=== PATIENT | male | born 1945 | race Hispanic/Latino ===

== ENCOUNTER → 2018-07-26 | Outpatient (CLI) | payer OTHER | END | disposition home or self-care (01) | LOC: RAH 08:43 | PROVIDERS: ATTEND Internal Medicine | DX: M47.26 Other spondylosis with radiculopathy, lumbar region (principal); M48.061 Spinal stenosis, lumbar region without neurogenic claudication; M48.07 Spinal stenosis, lumbosacral region | CPT/HCPCS: 72148 ==

== ENCOUNTER → 2024-09-08 | Outpatient (CLI) | payer MEDICARE ==
[~2024-09-08] MED LIST: AMLO-258 PO; CYAN-37 PO; FOLI0.8T22 PO; GLIM1TAB56 PO; LEVO25CA5 PO; ROSU5TAB51 PO; SODI650T PO
--- NOTE | 2024-09-09 05:46 | HMCIMG ---
EXAM: CT Pelvis without IV contrast. CLINICAL HISTORY: Elevated prostate-specific antigen. TECHNIQUE: Thin collimated axial CT images of the abdomen and pelvis were obtained with sagittal and coronal reformatted images also submitted. CT scan done according to ALARA (As Low As Reasonably Achievable). CONTRAST: None. COMPARISON: CT abdomen and pelvis without contrast dated 05/11/22. FINDINGS: Diffuse uncomplicated colonic diverticulosis. There is no abnormality within the urinary bladder. Mild prostatomegaly measuring 4.3 x 3.3 x 4.4 cm (CC x AP x TR). Bilateral seminal vesicles are unremarkable. Mild calcific atheromatous plaques in the bilateral iliac and common femoral arteries. No significant lymphadenopathy. No free fluid. There is no acute osseous abnormality. Mild degenerative osseous changes. IMPRESSIONS: 1. No acute process in the pelvis. 2. Mild prostatomegaly. Mild interval increase from the prior scan. 3. Diffuse uncomplicated colonic diverticulosis, stable. /Satish
--- NOTE | 2024-09-09 09:19 | HMCIMG ---
EXAMINATION: ULTRASOUND OF THE THYROID. CLINICAL HISTORY: Hypothyroidism. COMPARISON: None. TECHNIQUE: Transverse and longitudinal images were obtained through both lobes and the isthmus of the thyroid. FINDINGS: The thyroid gland is normal in caliber with homogenous tissue echotexture. The right thyroid lobe measures 3.1 x 1.7 x 1.1 cm and the left thyroid lobe measures 2.3 x 0.6 x 0.7 cm in the craniocaudal, AP, and transverse dimensions respectively. The isthmus measures 0.3 cm in AP dimension. Right lobe: There are no focal lesions. Left lobe: There are no focal lesions. No significantly enlarged lymph nodes. IMPRESSION: No significant abnormality. /Satish
== END | disposition home or self-care (01) ==
LOC: RAH 13:55
PROVIDERS: ATTEND Internal Medicine
DX: N40.0 Benign prostatic hyperplasia without lower urinary tract symptoms (principal); K57.30 Diverticulosis of large intestine without perforation or abscess without bleeding; I70.203 Unspecified atherosclerosis of native arteries of extremities, bilateral legs; E03.9 Hypothyroidism, unspecified; R97.20 Elevated prostate specific antigen [PSA]
CPT/HCPCS: 72192; 76536

== ENCOUNTER 2024-10-09 16:32 | Emergency (ER) | payer OTHER, MEDICARE ==
[~2024-10-09] VITALS: Ht 172.7 cm; Wt 83.5 kg
--- NOTE | 2024-10-09 16:53 | ERN ---
General Chief Complaint: Weakness Stated Complaint: WEAKNESS X 2 DAYS Time Seen by MD: 16:34 Source: patient History of Present Illness Initial Comments PATIENT IS A 79-YEAR-OLD MALE COMING IN COMPLAINING OF GENERALIZED BODY WEAKNESS AND BODY ACHES. HE STATES THAT THIS HAS BEEN ONGOING FOR A COUPLE OF DAYS. FAR THE BODY ACHES PATIENT STATES THAT THEY ARE MORE PRESENT IN HIS LOWER EXTREMITIES. Allergies: Coded Allergies: No Known Allergies (Unverified Allergy, Unknown, 05/11/22) Home Meds Reported Medications Folic Acid/Vitamin B Comp W-C (Ngozi-Jeri Tablet) 0.8 Mg Tablet, 0.8 MG PO DAILY, TAB 05/11/22 Sodium Bicarbonate (Sodium Bicarbonate) 650 Mg Tablet, 650 MG PO TID, TAB 05/11/22 Levothyroxine Sodium (Levothyroxine) 25 Mcg Capsule, 25 MCG PO AM, CAP 05/11/22 Amlodipine Besylate (Amlodipine Besylate) 10 Mg Tablet, 10 MG PO DAILY for 30 Days, #30 TAB 0 Refills 05/11/22 Cyanocobalamin (Vitamin B-12) (B-12) 1,000 Mcg Tablet, 1000 MCG PO DAILY, TAB 05/11/22 Glimepiride (Glimepiride) 1 Mg Tablet, 1 MG PO BID, TAB 05/11/22 Rosuvastatin Calcium (Rosuvastatin Calcium) 5 Mg Tablet, 5 MG PO DAILY, TAB 05/11/22 Past Medical History Past Medical History: Diabetes-Type II, High Cholesterol, Hypertension, Renal Failure, Other Medical History Other: VERTIGO Past Surgical History: None ROS Dictation CONSTITUTIONAL: NO CHILLS, NO FEVER, NO WEAKNESS, NO DIAPHORESIS, NO MALAISE. HEAD/FACE: NO SIGNS OF TRAUMA. EENT: NO EYE PAIN, NO BLURRED VISION, NO TEARING, NO DOUBLE VISION, NO EAR PAIN, NO EAR DISCHARGE, NO NOSE PAIN, NO NASAL CONGESTION, NO THROAT PAIN, NO THROAT SWELLING, NO MOUTH PAIN. RESPIRATORY: NO COUGH, NO ORTHOPNEA, NO SOB, NO STRIDOR, NO WHEEZING. CARDIOVASCULAR: NO CHEST PAIN, NO EDEMA, NO PALPITATIONS, NO SYNCOPE. GASTROINTESTINAL/ABDOMINAL: NO ABDOMINAL PAIN, NO CONSTIPATION, NO DIARRHEA, NO NAUSEA, NO VOMITING. GENITOURINARY: NO ABNORMAL DISCHARGE, NO DYSURIA, NO FREQUENT URINATION, NO HEMATURIA. NO COMPLAINTS OF PAIN IN THE GENITALS. MUSCULOSKELETAL: NO BACK PAIN, NO GOUT, NO JOINT PAIN, NO JOINT SWELLING, NO MUSCLE PAIN, NO MUSCLE STIFFNESS, NO NECK PAIN. INTEGUMENTARY: NO CHANGE IN COLOR, NO CHANGE IN HAIR/NAILS, NO DRYNESS, NO LESION, NO LUMPS, NO RASH. NEUROLOGICAL/PSYCH: NO ANXIETY, NOT DEPRESSED, NO EMOTIONAL PROBLEM, NO HEADACHE, NO NUMBNESS, NO PRE-EXISTING DEFICIT, NO HISTORY OF SEIZURES, NO TREMORS, NO WEAKNESS. HEMATOLOGIC/LYMPHATIC: NOT ANEMIC, NO HISTORY OF BLOOD CLOTS, NO APPARENT BLEEDING, NO BRUISING, GLANDS NOT SWOLLEN. ALL SYSTEMS NEGATIVE, EXCEPT NOTED. Physical Exam Physical Exam Dictation VITAL SIGNS: REVIEWED. GENERAL APPEARANCE: ALERT, ORIENTED X3, NO ACUTE DISTRESS, OBESE. HEAD AND FACE: NON-TRAUMATIC. EYES: PERRL, PINK CONJUNCTIVAS, EYELID NO TRAUMA, ANTERIOR CHAMBER CLEAR. EARS: PINNAS INTACT AND NO SIGNS OF TRAUMA OR ERYTHEMA. EAR CANALS CLEAR AND NO DISCHARGE. TMS NO ERYTHEMA. NOSE: NO DISCHARGE, NO BLEEDING. OROPHARYNX: MOUTH NORMAL, TEETH NO CARIES, TONGUE PINK. PHARYNX CLEAR, NO ERYTHEMA. TONSILS NO EXUDATES, NO ABSCESSES NOTED. MUCOUS MEMBRANE MOIST. NECK: SUPPLE, NON-TENDER, NO THYROMEGALY, NO MASSES, NO JVD, NO BRUITS. BREAST: DEFERRED. CHEST: NO TENDERNESS, NO CREPITUS, NO PARADOXICAL MOVEMENT, NO RETRACTIONS. LUNGS: CLEAR, WELL-VENTILATED, SYMMETRIC, NO RALES, NO WHEEZING, NO RHONCHI, NO STRIDOR, GOOD BREATH SOUNDS BILATERALLY. HEART: REGULAR RATE, REGULAR RHYTHM, NO MURMUR, NO GALLOPS. VASCULAR: NO PERIPHERAL EDEMA. ABDOMEN: SOFT, POSITIVE BOWEL SOUNDS, NONDISTENDED, NO GUARDING, NONTENDER, NO REBOUND, NO MASSES NO HEPATOMEGALY, NO SPLENOMEGALY, NO NETTLES'S SIGN, NO HERNIAS. RECTAL: DEFERRED. GENITAL: DEFERRED. NEUROLOGICAL: NORMAL SPEECH, GROSS MOTOR FUNCTION INTACT, GROSS SENSORY FUNCTION INTACT. MUSCULOSKELETAL: NECK NONTENDER, FULL RANGE OF MOTION, BACK NONTENDER, FULL RANGE OF MOTION. EXTREMITIES: NONTENDER, FULL RANGE OF MOTION. SKIN: COLOR PINK, DRY, NO TURGOR, NO RASH, NO LACERATIONS, NO ABRASIONS, NO CONTUSIONS. LYMPHATICS: DEFERRED. Results Laboratory and Microbiology Lab and Micro Result Laboratory Tests Test 10/09/24 16:50 10/09/24 16:52 White Blood Count 9.1 K/uL (4.8-10.8) Red Blood Count 4.18 MIL/uL (4.50-6.20) L Hemoglobin 12.8 g/dL (14.0-18.0) L Hematocrit 38.2 % (42-54) L Mean Corpuscular Volume 91.4 fL (79-99) Mean Corpuscular Hemoglobin 30.6 pg (27.0-33.0) Mean Corpuscular Hemoglobin Concent 33.5 g/dL (32.0-36.0) Red Cell Distribution Width 14.6 % (11.0-15.5) Platelet Count 205 K/uL (130-400) Mean Platelet Volume 10.2 fL (7.5-10.5) Immature Granulocyte % (Auto) 0.6 % (0-1) Neutrophils (%) (Auto) 72.4 % (40.0-77.0) Lymphocytes (%) (Auto) 13.2 % (21.0-51.0) L Monocytes (%) (Auto) 12.5 % (3.0-13.0) Eosinophils (%) (Auto) 0.9 % (0.0-8.0) Basophils (%) (Auto) 0.4 % (0.0-5.0) Neutrophils # (Auto) 6.6 K/uL (1.8-7.7) Lymphocytes # (Auto) 1.2 K/uL (1.0-4.8) Monocytes # (Auto) 1.1 K/uL (0.1-1.0) H Eosinophils # (Auto) 0.08 K/uL (0.00-0.70) Basophils # (Auto) 0.04 K/uL (0.00-0.20) Absolute Immature Granulocyte (auto 0.05 K/uL (0-1) Nucleated Red Blood Cells 0.0 % (0.0-0.19) Sodium Level 137 mmol/L (136-145) Potassium Level 3.9 mmol/L (3.5-5.1) Chloride Level 101 mmol/L (101-111) Carbon Dioxide Level 22 mmol/L (21-32) Blood Urea Nitrogen 31 mg/dL (7-18) H Creatinine 2.8 mg/dL (0.5-1.3) H Glomerular Filtration Rate Calc 22 mL/min (>90) Random Glucose 180 mg/dL (70-105) H Total Calcium 8.8 mg/dL (8.5-10.1) Magnesium Level 2.10 mg/dL (1.80-2.40) Total Creatine Kinase 147 U/L (21-232) Troponin I High Sensitivity 22 ng/L (4-75) Influenza Type A Antigen Negative For Type A Influenza Type B Antigen Negative For Type B SARS-CoV-2, RNA, NAAT POSITIVE SARS CoV-2 Labs Reviewed?: Yes EKG/XRAY/US/CT/MRI EKG Comment 10/09/2024 TIME 4:43 P.M. VENTRICULAR RATE 94 SIN[address] R[address] [place] [address] WAVE ELEVATION OR DEPRESSION MDM MDM: DIFFERENTIAL DIAGNOSIS: RATIONALE: TESTS CONSIDERED AND ORDERED SECONDARY TO SHARED DECISION MAKING INCLUDE: PREVIOUS OUTSIDE RECORDS REVIEWED: OLD ER VISITS. RISK OF COMPLICATION AND/OR MORBIDITY OR MORTALITY OF PATIENT MANAGEMENT: NONE MEDICATIONS-PER MEDICATION RECONCILIATION NEED FOR HOSPITALIZATION: PATIENT DOES NOT MEET CRITERIA FOR HOSPITALIZATION. NEED FOR EMERGENCY MAJOR/MINOR SURGERY: NO THERE ARE NO SOCIAL CONCERNS WITH THIS PATIENT. PRESCRIPTION DRUG MANAGEMENT PRESCRIPTIONS WILL INCLUDE SYMPTOMATIC CARE PATIENT'S PRIOR EXTERNAL MEDICAL RECORDS FROM OTHER ER VISITS WERE REVIEWED BY ME INDICATED. PRIOR TESTING AND RESULTS FROM PREVIOUS VISITS WERE REVIEWED. PRIOR TESTS WERE TAKEN INTO ACCOUNT WITH MEDICAL DECISION MAKING AND RESOURCE UTILIZATION, INDEPENDENT HISTORIAN/HISTORIANS WERE USED TO OBTAIN COMPLETE MEDICAL HISTORY. I INDEPENDENTLY INTERPRETED THE TEST THAT WERE PERFORMED, RESULTS WERE REVIEWED BY ME AND CONSIDERED FINDINGS ON RADIOLOGY IF ORDERED. MEDICAL MANAGEMENT AND EXAMINATION INTERPRETATION DISCUSSIONS WERE HAD BY ME WITH OTHER QUALIFIED HEALTHCARE PROFESSIONALS INDICATED FOR THE PATIENT'S CARE. Patient's CBC is normal. Chemistry panel shows elevated BUN and creatinine we have no baseline values in the computer. Serology positive for COVID. Chest x- ray is negative for infiltrates it does have the Chilaiditi sign. We will give him Paxlovid and ask him to follow-up with his primary care physician regarding his renal function. ED Course Orders Procedure Category Date Status Time Cbc With Differential LAB 10/09/24 Complete 16:42 Chest 1vw RAD 10/09/24 Resulted 16:42 12 Lead Ekg Tracing- EKG 10/09/24 Logged Technical 16:42 0.9%Nacl 1000ml (Ns PHA 8/11/25 In Process 1000ml) 17:00 Magnesium LAB 10/09/24 Complete 16:42 Creatine Kinase, Total LAB 10/09/24 Complete 16:42 Troponin I High LAB 10/09/24 Complete Sensitivity 16:42 Urinalysis Profile LAB 10/09/24 Logged 16:42 Basic Metabolic Panel LAB 10/09/24 Complete 16:42 Covid Rna Naat LAB 10/09/24 In Process 16:42 Influenza Type A & B, LAB 10/09/24 In Process Rapid 16:42 Rapid (Group A Strep) LAB 10/09/24 In Process 16:42 Current Medications Medications (Trade) Dose Ordered Sig/Diony Route PRN Reason Start Time Stop Time Status Last Admin Dose Admin Sodium Chloride 1,000 ml @ 0 mls/hr ONCE IV 10/09/24 17:00 10/10/24 16:59 Vital Signs Date Time Temp Pulse Resp B/P (MAP) Pulse Ox O2 Delivery O2 Flow Rate FiO2 10/09/24 16:34 99.9 101 16 114/54 96 Room Air 0 DX & DISP Disposition: Discharge Departure Impression: Primary Impression: COVID Additional Impression: Strep throat Condition: Stable Scripts Nirmatrelvir/Ritonavir (Paxlovid 150-100 mg (Moderate)) 150 Mg (10)-100 Mg (10) Tab.ds.pk 1 EACH PO BID for 7 Days, #15 CAP Prov: ADRY CAVAZOS MD 10/09/24 Amoxicillin (Amoxicillin) 500 Mg Capsule 1 CAP PO TID for 10 Days, #30 CAP 0 Refills Prov: ADRY CAVAZOS MD 10/09/24 Additional Instructions: You have strep throat and COVID. I have given you prescriptions to treat both of those. Are labs do show that you have some renal failure but you have told me you know about that and are taking medications for it. Please follow-up with your primary care provider if you do not get better in the next few days. Also drink plenty of fluids. Drink enough so that your urine runs clear at least once a day. Referrals: NADIR WORLEY MD (PCP) PREMA SOTO MD Oct 09, 2024 16:53 ADRY CAVAZOS MD Oct 09, 2024 19:44
[2024-10-09] MEDS ORDERED: 0.9%NACL 1000ML 1,000 ML IV SCH (17:00)
[2024-10-09 17:08] LABS: IMMATURE GRANULOCYTE ABSOLUTE 0.05 K/uL (0-1); NUCLEATED RED BLOOD CELLS 0.0 % (0.0-0.19); PLATELET COUNT (AUTO) 205 K/uL (130-400); RED BLOOD CELL COUNT(AUTO) 4.18 MIL/uL (4.50-6.20); RED CELL DISTRIBUTION WIDTH 14.6 % (11.0-15.5); WHITE BLOOD COUNT (AUTO) 9.1 K/uL (4.8-10.8)
[2024-10-09 17:24] LABS: CREATININE 2.8 mg/dL (0.5-1.3); GLOMERULAR FILTR. RATE CALC 22.0 mL/min (>90); GLUCOSE,RANDOM 180.0 mg/dL (70-105); SODIUM SERUM 137.0 mmol/L (136-145); UREA NITROGEN, BLOOD 31.0 mg/dL (7-18)
[2024-10-09 17:28] LABS: INFLUENZA TYPE A Negative For Type A (NEGATIVE); INFLUENZA TYPE B Negative For Type B (NEGATIVE)
[2024-10-09 17:38] LABS: CREATINE KINASE, TOTAL 147.0 U/L (21-232)
[2024-10-09 17:42] LABS: SARS-CoV-2, RNA, NAAT POSITIVE SARS CoV-2 (NEGATIVE)
--- NOTE | 2024-10-09 18:52 | HMCIMG ---
EXAM: CR Chest, 1 View. CLINICAL HISTORY: WEAKNESS COMPARISON: None provided. FINDINGS: LUNGS: The lungs show no infiltrate or other acute finding. PLEURAL SPACES: No pleural effusion or pneumothorax. MEDIASTINUM: The cardiomediastinal silhouette is within normal limits. BONES: No aggressive appearing osseous lesion seen. IMPRESSION: No acute cardiopulmonary pathology is evident. /[place]
--- NOTE | 2024-10-09 19:32 | EKG ---
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
[2024-10-09 19:35] LABS: RAPID GROUP A STREP positive (NEGATIVE)
[2024-10-09] MEDS ORDERED: NIRM1TAB7 PO (19:41)
[2024-10-09] MEDS ORDERED: AMOX500C2 PO (19:41)
--- NOTE | 2024-10-09 19:45 | NUR ---
as per Dr Pantoja patient is ready for discharge, cancel order for liter fluids and discharge home.
[2024-10-09 19:50] VITALS: BP 122/64; PULSE 94; RESP 18; TEMP 99; O2SAT 97
== END 2024-10-09 19:55 | disposition home or self-care (01) ==
LOC: EDH 16:32
DX: U07.1 COVID-19 (principal); J02.0 Streptococcal pharyngitis; E11.9 Type 2 diabetes mellitus without complications; E78.00 Pure hypercholesterolemia, unspecified; I10 Essential (primary) hypertension; Z79.899 Other long term (current) drug therapy
CPT/HCPCS: 36415; 71045; 80048; 82550; 83735; 84484; 85025; 87635; 87804; 87880; 93005; 99285